=== PATIENT | male | born 1975 | race American Indian/Alaskan Native ===

== ENCOUNTER → 2016-08-19 | Emergency (ER) | payer OTHER ==
[~2016-08-19] MED LIST: MAG HYDROX/AL HYDROX/SIMETH 30 ML UNIT-DOSE CUP ONE; MAG HYDROX/AL HYDROX/SIMETH 30 ML UNIT-DOSE CUP PO ONE; PANTOPRAZOLE 20 MG TABLET (FP) PO ONE; PANTOPRAZOLE 40 MG TABLET (FP) ONE
[2016-08-19 16:44] VITALS: TEMP 98.3; BMI 26.6
--- NOTE | 2016-08-19 17:47 | PDOC ---
History of Present Illness - General History Source: Patient Exam Limitations: No Limitations - History of Present Illness Initial Comments: 08/19/16 17:55 The patient is a 40 year old male, with a significant past medical history of anxiety who presents to the emergency department with chest heaviness for 3 days. The patient reports after eating sushi, 3 days ago, waking up with sensations of a possible foreign body in stuck in his throat. He denies any allergic reactions to sushi. He reports since eating sushi waking up in the middle of night due to chest heaviness, has been fatigued, and constipated only having 1 bowel movement. He reports also having build up mucus in his throat. He denies any difficulties eating since the onset of his symptoms and has had a regular appetite fr the past 3 days. He denies any pain in his throat. He denies any recent fevers, chills, headache or dizziness. He denies any recent nausea, vomit, or diarrhea. He denies any recent shortness of breath. Allergies: NKA Past surgical history: None reported. Social History: Nonsmoker. Denies EtOH use and recreational drug use. Family History: Noncontributory PCP: N/A <Kyle Barrow - Last Filed: 08/19/16 18:14> - General History Source: Patient Exam Limitations: No Limitations <Martine Barboza - Last Filed: 08/19/16 19:00> - General Chief Complaint: Foreign Body (FB) Stated Complaint: PCP SENT/FOREIGN BODY Time Seen by Provider: 08/19/16 17:22 Past History <Kyle Barrow - Last Filed: 08/19/16 18:14> - Past Medical History Psychiatric Problems: Yes (ANXIETY) - Psycho/Social/Smoking Cessation Hx Anxiety: Yes Suicidal Ideation: No Smoking Status: No Smoking History: Never smoked Number of Cigarettes Smoked Daily: 0 Hx Alcohol Use: No Drug/Substance Use Hx: No Substance Use Type: None <Martine Barboza - Last Filed: 08/19/16 19:00> - Past Medical History Allergies/Adverse Reactions: Allergies Allergy/AdvReac Type Severity Reaction Status Date / Time No Known Allergies Allergy Verified 08/19/16 16:43 Home Medications: Ambulatory Orders NK [No Known Home Medication] 01/27/16 Review of Systems - Review of Systems Able to Perform ROS?: Yes Comments:: 08/19/16 17:56 GENERAL/CONSTITUTIONAL: +weakness and halitosis. No: fever, chills, loss of appetite. HEAD, EYES, EARS, NOSE AND THROAT: No: change in vision, ear pain, discharge, sore throat, throat swelling. CARDIOVASCULAR: chest heaviness. No: chest pain, lightheadedness, palpitations, syncope RESPIRATORY: No: cough, shortness of breath, wheezing, hemoptysis, stridor. GASTROINTESTINAL: +constipation No: nausea, vomiting, diarrhea, abdominal cramping, rectal bleeding.. GENITOURINARY: No: dysuria, hematuria, frequency, urgency, flank pain. MUSCULOSKELETAL: No: back pain, neck pain, joint pain, muscle swelling or pain SKIN : No: lesions, pallor, rash or easy bruising. NEUROLOGIC: No: headache, vertigo, paresthesias, weakness ENDOCRINE: No: unexplained weight gain or loss HEMATOLOGIC/LYMPHATIC: No: anemia, easy bleeding, swelling nodes. <Kyle Barrow - Last Filed: 08/19/16 18:14> *Physical Exam - Vital Signs Last Vital Signs Temp Pulse Resp BP Pulse Ox 98.3 F 84 20 141/91 99 08/19/16 16:40 08/19/16 16:40 08/19/16 16:40 08/19/16 16:40 08/19/16 16:40 - Physical Exam Comments: 08/19/16 18:04 GENERAL: The patient is in no acute distress. HEAD: Normal with no signs of trauma. EYES: PERRLA, EOMI, sclera anicteric, conjunctiva clear. ENT: Ears normal, nares patent, oropharynx clear without exudates. Moist mucous membranes. NECK: Normal range of motion, supple without lymphadenopathy, JVD, or masses. LUNGS: Breath sounds equal, clear to auscultation bilaterally. No wheezes, and no crackles. HEART: Regular rate and rhythm, normal S1 and S2 without murmur, rub or gallop. ABDOMEN: Soft, nontender, normoactive bowel sounds. No guarding, no rebound. No masses palpable. EXTREMITIES: Normal range of motion, no edema. No clubbing or cyanosis. No erythema, or tenderness. NEUROLOGICAL: Cranial nerves II through XII grossly intact. Normal speech. No focal neurological deficits. MUSCULOSKELETAL: Back non-tender to palpation, no CVA tenderness SKIN: Warm, Dry, normal turgor, no rashes or lesions noted. <Kyle Barrow - Last Filed: 08/19/16 18:14> - Vital Signs Last Vital Signs Temp Pulse Resp BP Pulse Ox 98.3 F 84 20 141/91 99 08/19/16 16:40 08/19/16 16:40 08/19/16 16:40 08/19/16 16:40 08/19/16 16:40 <Martine Barboza - Last Filed: 08/19/16 19:00> ED Treatment Course - LABORATORY CBC & Chemistry Diagram: 08/19/16 18:12 08/19/16 18:12 <Martine Barboza - Last Filed: 08/19/16 19:00> Medical Decision Making - Medical Decision Making 08/19/16 17:46 A portion of this note was documented by scribe services under my direction. I have reviewed the details of the note, within reason, and agree with the documentation with the following case summary and management plan written by me. Nursing documentation reviewed and incorporated into medical decision making 08/19/16 18:57 This is an otherwise healthy 40-year-old male presented to emergency department with a complaint of chest discomfort. Patient states possibly 4 days ago he had sushi, awoke the next morning with chest tightness/pressure. No diaphoresis, no nausea. Patient's is concerned that something became stuck in his esophagus. This has not happened to him before. He does not have epigastric pain. Patient states his pain is mostly located in the upper chest He is tolerating po He is tolerating his saliva He does have mucous coming up which he swallows Will do basic labs. Will do chest x-ray. Patient will need to follow up with GI. Pt signed out to Dr Joel <Martine Barboza - Last Filed: 08/19/16 19:00> *DC/Admit/Observation/Transfer - Attestations Scribe Attestion: 08/19/16 17:56 Documentation prepared by Kyle Barrow, acting as caregivers non medical for Martine Barboza MD. <Kyle Barrow - Last Filed: 08/19/16 18:14> - Discharge Dispostion Admit: No <Martine Barboza - Last Filed: 08/19/16 19:00> Diagnosis at time of Disposition: Sensation of chest pressure - Discharge Dispostion Condition at time of disposition: Stable - Referrals Referrals: Candy Barrientos MD [Staff Physician] - Javad oRca MD [Staff Physician] - Dillan Ratliff MD [Staff Physician] - - Patient Instructions Printed Discharge Instructions: DI for Atypical Chest Pain Additional Instructions: Thank you for coming in to the ER Please follow up with a primary care physician Please also follow up with the gastrointestinal specialist Please return to the ER for any other concern or complaints
[2016-08-19 18:21] LABS: BASOPHIL 0.1 % (0-2.0); EOSINOPHIL 1.6 % (0-4.5); MCHC 34.2 g/dl (32.0-35.9); MEAN CELL VOLUME 84.7 fl (80-96); MEAN PLT VOLUME 8.5 fl (7.5-11.1); NEUTROPHILS 53.1 % (42.8-82.8); PLATELET COUNT 230 K/MM3 (134-434); RDW 12.8 % (11.9-15.9); WHITE BLOOD COUNT 6.7 K/mm3 (4.0-10.0)
[2016-08-19 18:53] LABS: ANION GAP 7 (8-16); CALCIUM 8.3 mg/dL (8.5-10.1); CO2 28 mmol/L (21-32); CREATININE 0.9 mg/dL (0.7-1.3); GLUCOSE,RANDOM 92 mg/dL (74-106)
[2016-08-19 18:58] LABS: TROPONIN I < 0.02 ng/ml (0.00-0.05)
[2016-08-19 19:34] VITALS: BP 148/102; PULSE 69
--- NOTE | 2016-08-20 13:10 | EKG ---
Test Reason : Blood Pressure : / mmHG Vent. Rate : 060 BPM Atrial Rate : 060 BPM P-R Int : 174 ms QRS Dur : 088 ms QT Int : 384 ms P-R-T Axes : 037 037 034 degrees QTc Int : 384 ms NORMAL SINUS RHYTHM NONSPECIFIC ST ABNORMALITY ABNORMAL ECG WHEN COMPARED WITH ECG OF 27-JAN-2016 15:16, NO SIGNIFICANT CHANGE WAS FOUND Confirmed by RENEA HOUSE MD ([id number]) on 08/20/2016 1:10:04 PM Referred By: Confirmed By:RENEA HOUSE MD
== END | disposition home or self-care (01) ==
LOC: JER 16:39
DX: R07.89 Other chest pain (principal); F41.9 Anxiety disorder, unspecified
CPT/HCPCS: 36415; 71020-TC; 80048; 82550; 84484; 85025; 93005; 93010; 99283-25

== ENCOUNTER 2017-05-12 23:26 | Emergency (ER) | payer OTHER ==
[2017-05-12 23:35] VITALS: BP 134/90; PULSE 78; TEMP 97.8; BMI 26.3
--- NOTE | 2017-05-12 23:52 | PDOC ---
History of Present Illness - General Chief Complaint: Back Pain Stated Complaint: BACK PAIN Time Seen by Provider: 05/12/17 23:37 History Source: Patient - History of Present Illness Initial Comments: 05/13/17 01:10 41 year old male with mid back pain worse with movement. patient reports that pain started when patient was running on a treadmill. denies numbness and tingling to lower extremity. denies incontinence of urine and bowel. Past History - Past Medical History Allergies/Adverse Reactions: Allergies Allergy/AdvReac Type Severity Reaction Status Date / Time No Known Allergies Allergy Verified 05/12/17 23:33 Home Medications: Ambulatory Orders Acetaminophen [Tylenol -] 1,000 mg PO Q6H PRN 05/12/17 Cyclobenzaprine HCl [Flexeril -] 10 mg PO TID PRN #10 tablet 05/13/17 Ibuprofen 600 mg PO QID PRN #20 tablet 05/13/17 COPD: No Psychiatric Problems: Yes (ANXIETY) - Suicide/Smoking/Psychosocial Hx Smoking Status: No Smoking History: Never smoked Number of Cigarettes Smoked Daily: 0 Hx Alcohol Use: No Drug/Substance Use Hx: No Substance Use Type: None *Physical Exam - Vital Signs Last Vital Signs Temp Pulse Resp BP Pulse Ox 97.8 F 78 18 134/90 99 05/12/17 23:34 05/12/17 23:34 05/12/17 23:34 05/12/17 23:34 05/12/17 23:34 - Physical Exam General Appearance: Yes: Appropriately Dressed Musculoskeletal: positive: Normal Inspection, Muscle Spasm, Vertebral Tenderness (lumbar area tenderness) Extremity: positive: Normal Capillary Refill Integumentary: positive: Normal Color, Dry, Warm Progress Note - Progress Note Progress Note: back pain. P: xray NSAIDS *DC/Admit/Observation/Transfer Diagnosis at time of Disposition: Muscle spasm Back pain Qualifiers: Back pain location: low back pain Chronicity: acute Back pain laterality: bilateral Sciatica presence: without sciatica Qualified Code(s): M54.5 - Low back pain - Discharge Dispostion Disposition: HOME - Prescriptions Prescriptions: Cyclobenzaprine HCl [Flexeril -] 10 mg PO TID PRN #10 tablet PRN Reason: Muscle Spasms Ibuprofen 600 mg PO QID PRN #20 tablet PRN Reason: Back Pain - Referrals Referrals: Jeremy Martinez MD [Staff Physician] - - Patient Instructions Printed Discharge Instructions: DI for Musculoskeletal Pain Additional Instructions: take ibuprofen as ordered. take flexeril as prescribed. do not drive or operate heavy machinery follow up with orthopedic doctor as soon as possible. return to the ER if symptoms worsen. - Post Discharge Activity Forms/Work/School Notes: Back to Work
[2017-05-13] MEDS ORDERED: KETOROLAC TROMETHAMINE 60 MG/2 ML VIAL IM ONE (00:32)
[2017-05-13] MEDS ORDERED: KETOROLAC TROMETHAMINE 60 MG/2 ML VIAL ONE (00:35)
== END 2017-05-13 01:50 | disposition home or self-care (01) ==
LOC: JER 23:26
PROC: 3E0233Z Introduction of Anti-inflammatory into Muscle, Percutaneous Approach (ICD-10-PCS; principal; 2017-05-12)
DX: M54.5 Low back pain (principal); M62.830 Muscle spasm of back; F41.9 Anxiety disorder, unspecified
CPT/HCPCS: 72100-TC-FY; 99282-25

== ENCOUNTER 2018-05-25 19:50 | Emergency (ER) | payer OTHER ==
--- NOTE | 2018-05-25 20:00 | PDOC ---
Rapid Medical Evaluation Chief Complaint: Chest Pain Time Seen by Provider: 05/25/18 19:58 Medical Evaluation: Allergies Allergy/AdvReac Type Severity Reaction Status Date / Time No Known Allergies Allergy Verified 05/12/17 23:33 05/25/18 19:58 I have personally performed a brief examination of the patient. CC: CP HPI: Pt has had CP x 4 days. Pt denies CV hx. Pt denies family CV hx. PE: Skin: Clear Lungs: Clear Heart RRR MS: Move all extremities Neuro: Alert Psych: Appropriate affect The patient will proceed to main ED for further evaluation. Discharge Disposition - Diagnosis Chest pain Qualifiers: Chest pain type: unspecified Qualified Code(s): R07.9 - Chest pain, unspecified - Referrals - Patient Instructions - Post Discharge Activity
[2018-05-25 20:03] VITALS: BP 156/95; PULSE 65; TEMP 98.2; BMI 26.4
--- NOTE | 2018-05-25 20:12 | PDOC ---
History of Present Illness - General Chief Complaint: Chest Pain Stated Complaint: PAIN IN CHEST Time Seen by Provider: 05/25/18 19:58 - History of Present Illness Initial Comments: 05/25/18 20:09 42 yo M with h/o HLD, HTN, anxiety who p/w chest pain. Patient acute onset of non exertional, non pleuritic, left sided chest pressure/sharp sensation radiating to left shoulder and left shoulder blade, lasting seconds, and resolving spontaneously x 1 day. No identifiable alleviators or triggers. No asx. SOB. Also endorses 2 weeks of intermittent lightheadedness, with one episode of pre-syncope. Patient arrives from urgent care following chest discomfort with nml EKG Patient denies BREAUX, vision change, palpitations, cough, wheezing, orthopena, PND , leg swelling/pain, N/V, F,C, SOB, urinary complaints, hematuria, BPR, abdominal pain, diarrhea, constipation, weakness, sensory changes. PMHx: as noted above. Denies h/o ACS/ID, stent placement, CABG, stress testing. Does not f/w cardiology. Denies h/o PE/DVT ROS: as noted SHx: Denies Etoh, IVDA, tobacco use Allergies: NKDA Past History - Past Medical History Allergies/Adverse Reactions: Allergies Allergy/AdvReac Type Severity Reaction Status Date / Time No Known Allergies Allergy Verified 05/25/18 20:03 Home Medications: Ambulatory Orders Acetaminophen [Tylenol -] 1,000 mg PO Q6H PRN 05/12/17 Cyclobenzaprine HCl [Flexeril -] 10 mg PO TID PRN #10 tablet 05/13/17 Ibuprofen 600 mg PO QID PRN #20 tablet 05/13/17 COPD: No HTN: Yes Hypercholesterolemia: Yes Psychiatric Problems: Yes (ANXIETY) - Immunization History Immunization Up to Date: Yes - Suicide/Smoking/Psychosocial Hx Smoking Status: No Smoking History: Unknown if ever smoked Have you smoked in the past 12 months: No Number of Cigarettes Smoked Daily: 0 Information on smoking cessation initiated: No Hx Alcohol Use: No Drug/Substance Use Hx: No Substance Use Type: None Review of Systems - Review of Systems Comments:: 05/25/18 20:11 GENERAL/CONSTITUTIONAL: No fever or chills. No weakness. HEAD, EYES, EARS, NOSE AND THROAT: No change in vision. No ear pain or discharge. No sore throat. CARDIOVASCULAR: + chest pain. No shortness of breath RESPIRATORY: No cough, wheezing, or hemoptysis. GASTROINTESTINAL: No nausea, vomiting, diarrhea or constipation. GENITOURINARY: No dysuria, frequency, or change in urination. MUSCULOSKELETAL: No joint or muscle swelling or pain. No neck or back pain. SKIN: No rash NEUROLOGIC: + lightheadedness. No headache, vertigo, loss of consciousness, or change in strength/sensation. ENDOCRINE: No increased thirst. No abnormal weight change HEMATOLOGIC/LYMPHATIC: No anemia, easy bleeding, or history of blood clots. ALLERGIC/IMMUNOLOGIC: No hives or skin allergy. *Physical Exam - Vital Signs Last Vital Signs Temp Pulse Resp BP Pulse Ox 98.2 F 65 16 156/95 100 05/25/18 20:01 05/25/18 20:01 05/25/18 20:01 05/25/18 20:01 05/25/18 20:01 - Physical Exam Comments: 05/25/18 20:12 GENERAL: Awake, alert, and fully oriented, in no acute distress HEAD: No signs of trauma, normocephalic, atraumatic EYES: PERRLA, EOMI, sclera anicteric, conjunctiva clear ENT: Auricles normal inspection, hearing grossly normal, nares patent, oropharynx clear without exudates. Moist mucosa NECK: Normal ROM, supple, no lymphadenopathy, JVD, or masses LUNGS: No distress, speaks full sentences, clear to auscultation bilaterally HEART: Regular rate and rhythm, normal S1 and S2, no murmurs, rubs or gallops, peripheral pulses normal and equal bilaterally. ABDOMEN: Soft, nontender, normoactive bowel sounds. No guarding, no rebound. No masses EXTREMITIES : Normal inspection, Normal range of motion, no edema. No clubbing or cyanosis. NEUROLOGICAL: Cranial nerves II through XII grossly intact. Normal speech, normal gait, no focal sensorimotor deficits SKIN: Warm, Dry, normal turgor, no rashes or lesions noted ED Treatment Course - LABORATORY CBC & Chemistry Diagram: 05/25/18 20:29 05/25/18 20:29 Medical Decision Making - Medical Decision Making 05/25/18 20:12 42 yo M with h/o HLD, HTN, anxiety who p/w acute onset of left sided chest pressure/sharp sensation radiating to left shoulder and left shoulder blade x 1 day and lightheadedness. Vitals wnl, AF, A&Ox3, physical exam unremarkable. ACS/ ID r/o. PERC NEG PE. Will assess for cardiac dysarrythmias, hypoglycemia, electrolyte abnml, metabolic and toxic derangements, acid-base disturbances, infection. Ed Course: EKG: NSR with absent DOUGLAS, STD. Neg Q waves. Nml R wave progression. Nml interval duration and axis. 05/25/18 22:14 CBC,CMP: Unremarkable Trop: Neg 05/26/18 00:28 Patient advised to f/u with cardiology. Stable for d/c with return precautions. *DC/Admit/Observation/Transfer Diagnosis at time of Disposition: Chest pain Qualifiers: Chest pain type: unspecified Qualified Code(s): R07.9 - Chest pain, unspecified - Referrals Referrals: Tr Avalos MD [Staff Physician] - Tang Rodriguez MD [Staff Physician] - - Patient Instructions Printed Discharge Instructions: DI for Atypical Chest Pain Additional Instructions: Please return to the emergency department with any new or worsening symptoms or concerns. Please follow up with your primary care physician within 72 hours. Please follow up with cardiology within 72 hours. - Post Discharge Activity
--- NOTE | 2018-05-25 20:26 | PDOC ---
Attending Attestation - Resident Resident Name: Cecilio Agarwalson - ED Attending Attestation I have performed the following: I have examined & evaluated the patient, The case was reviewed & discussed with the resident, I agree w/resident's findings & plan - [facility] HPI: 05/25/18 22:09\ The patient is a 42 year old male with a significant past medical history of anxiety, HTN (no meds), and HLD who presents to the ED with one day of acute L sided chest pain described as pressure radiating to left shoulder blade, lasting several seconds before resolving. this has been intermittently occurring x 4 days, no alleviating or exacerbating or triggering factors. The patient states he went to urgent care and was told to come to the ED for further evaluation after having an abnormal EKG?. The patient states he has been endorsing 2 weeks of lightheadedness - was seen by PMD about 4 weeks ago, dx'd with B12 deficiency he has been on supplements x several days. he states he also donated blood earlier last month, after that described intermittent periods of weakness and lightheadedness and malaise. no leg swelling or travel/prolonged immobilization. no h/o DVT or PE. no weakness or paresthesias down the extremities. no syncope. no trauma or infectious prodrome. Allergies: None Past Medical History: As noted in HPI Social history: No tobacco, ETOH or drug use. Surgical history: None Meds: as documented in EMR 05/25/18 22:11 - Physicial Exam PE: 05/25/18 22:09 Agree with the resident's HPI and PE as documented in the electronic medical record. NAD, well appearing, PERRL, EOMI, MMM, nl conjunctiva, anicteric; neck supple. lungs clear, RRR, no murmurs. abdomen soft nontender. MONTEZ x4, no focal neuro deficits. No peripheral edema. normal color for ethnicity, WWP. - Medical Decision Making 05/25/18 20:22 hpi as documented VS reviewed, wnl. DDx includes ACS, unstable vs stable angina, coronary vasospasm, NSTEMI, arrhythmia, costochondritis, GERD, pleurisy, anxiety, esophageal spasm, pneumonia, pericarditis/myocarditis, electrolyte/metabolic derangements. Low suspicion for pulmonary embolism or dissection. no infectious sx, so doubt infection, sx do not sound pleuritic. EKG normal sinus rhythm, no interval abnormalities, narrow QRS, ST and T wave segments and morphology normal. Chest pain HEART score 1 which denotes Low risk and probability for ACS, less than 1% risk for MACE at 4-6 wks risk factors of HTN, HLD - only on statin, no antihypertensive meds.; no tobacco use, no early deaths or early LA in family members labs and lytes normal. trop neg x2, EKG NSR nonischemic x2. unchanged, no symptoms. no cp or sob or neuro changes, paresthesias or weakness. Pt informed of my clinical impression, treatment recommendations and disposition plan. All questions answered to patient's satisfaction and expressed understanding and comfort with this. Reasons for returning to the ED sooner discussed including new or persistent/worsening symptoms with the patient otherwise, follow up with primary care physician. At the time of discharge, the patient is alert, clinically improved, tolerating po and verbalizes understanding of instructions, satisfied with the care received and felt comfortable with the plan. Patient does not suffer from an acute life- threatening medical condition at this time he is safe for outpatient follow-up. cards referrals given. 05/25/18 20:28 05/25/18 22:11 05/26/18 00:27 Heart Score/ECG Review - History History: Slightly suspicious - Electrocardiogram EKG: Normal - Age Age: </= 45 - Risk Factors Risk Factors Heart Score: Yes Hx Hypercholesterolemia, Yes Hx Hypertension Based on the list above the patient has:: 1-2 risk factors - Troponin Troponin: </= normal limit - Score Heart Score - Total: 1 #1 ECG reviewed & interpreted by me at: 08:05 General ECG Interpretation: Sinus Rhythm, Normal Rate, Normal Intervals, No acute ischemic changes 05/25/18 20:27 NSR at 60 bpm - ECG Intrepretation Rhythm: Regular Rhythm
[2018-05-25 20:49] LABS: BASO % 0.2 % (0-2.0); EOS % 1.8 % (0-4.5); HEMOGLOBIN 14.6 GM/dL (11.7-16.9); LYMPH % 36.6 % (8-40); MCH 30.2 pg (25.7-33.7); MCHC 34.8 g/dl (32.0-35.9); MEAN CELL VOLUME 86.7 fl (80-96); MEAN PLT VOLUME 8.9 fl (7.5-11.1); MONO % 8.8 % (3.8-10.2); NEUT % 52.6 % (42.8-82.8); PLATELET COUNT 245 K/MM3 (134-434); RBC 4.85 M/mm3 (4.00-5.60); RDW 13.5 % (11.9-15.9); WHITE BLOOD COUNT 6.9 K/mm3 (4.0-10.0)
[2018-05-25 21:04] LABS: INR 0.97 (0.83-1.09); PROTHROMBIN TIME (PATIENT) 11.4 SEC (9.7-13.0)
[2018-05-25 21:20] LABS: ALBUMIN 4.1 g/dl (3.4-5.0); ALK PHOS 68 U/L (45-117); ANION GAP 5 MMOL/L (8-16); BILIRUBIN,TOTAL 0.3 mg/dL (0.2-1); BLOOD UREA NITROGEN 12 mg/dL (7-18); CALCIUM 8.7 mg/dL (8.5-10.1); CHLORIDE 105 mmol/L (98-107); CO2 30 mmol/L (21-32); GLUCOSE,RANDOM 83 mg/dL (74-106); MAGNESIUM 1.9 mg/dL (1.8-2.4); POTASSIUM 4.3 mmol/L (3.5-5.1); SGOT/AST 25 U/L (15-37); SGPT/ALT 39 U/L (13-61); SODIUM 140 mmol/L (136-145); TOT PROT 7.4 g/dl (6.4-8.2)
--- NOTE | 2018-05-26 12:15 | EKG ---
Test Reason : Blood Pressure : / mmHG Vent. Rate : 060 BPM Atrial Rate : 060 BPM P-R Int : 194 ms QRS Dur : 088 ms QT Int : 394 ms P-R-T Axes : 024 004 033 degrees QTc Int : 394 ms NORMAL SINUS RHYTHM NORMAL ECG WHEN COMPARED WITH ECG OF 19-AUG-2016 18:01, NO SIGNIFICANT CHANGE WAS FOUND Confirmed by RENEA HOUSE MD ([id number]) on 05/26/2018 12:15:16 PM Referred By: Confirmed By:RENEA HOUSE MD
--- NOTE | 2018-05-26 12:15 | EKG ---
Test Reason : Blood Pressure : / mmHG Vent. Rate : 057 BPM Atrial Rate : 057 BPM P-R Int : 202 ms QRS Dur : 090 ms QT Int : 404 ms P-R-T Axes : 023 021 042 degrees QTc Int : 393 ms SINUS BRADYCARDIA OTHERWISE NORMAL ECG WHEN COMPARED WITH ECG OF 25-MAY-2018 20:30, NO SIGNIFICANT CHANGE WAS FOUND Confirmed by RENEA HOUSE MD ([id number]) on 05/26/2018 12:15:22 PM Referred By: Confirmed By:RENEA HOUSE MD
--- NOTE | 2018-05-27 10:40 | EKG ---
Test Reason : Blood Pressure : / mmHG Vent. Rate : 060 BPM Atrial Rate : 060 BPM P-R Int : 190 ms QRS Dur : 090 ms QT Int : 394 ms P-R-T Axes : 034 028 045 degrees QTc Int : 394 ms NORMAL SINUS RHYTHM NORMAL ECG WHEN COMPARED WITH ECG OF 19-AUG-2016 18:01, NO SIGNIFICANT CHANGE WAS FOUND Confirmed by GABRIEL CARTER MD ([id number]) on 05/27/2018 10:40:07 AM Referred By: Confirmed By:GABRIEL CARTER MD
== END 2018-05-26 00:42 | disposition home or self-care (01) ==
LOC: JER 19:50
DX: R07.9 Chest pain, unspecified (principal); I10 Essential (primary) hypertension; E78.5 Hyperlipidemia, unspecified; F41.9 Anxiety disorder, unspecified
CPT/HCPCS: 36415; 71046-TC-FY; 80053; 82550; 83735; 84484; 85025; 85610; 93005; 93010; 99282-25